=== PATIENT | female | born 1930 | race Caucasian/White ===

== ENCOUNTER 2016-08-04 12:32 | Emergency (ER) | payer MEDICARE, OTHER ==
[2016-08-04 13:07] LABS: Urine WBC >50 /hpf (0-5)
[2016-08-04 13:08] LABS: Urine Bacteria 3+; Urine RBC >50 /hpf (0-5)
--- NOTE | 2016-08-04 13:45 | ERNOTE ---
ER Female HPI Date of Service: 08/04/16 Stated Complaint: BLADDER INFECTION Time Seen by Provider: 08/04/16 13:15 Source: patient Exam Limitations: no limitations Immunizations: IMMUNIZATION HX History of Influenza Vaccine Yes Hx Pneumococcal Vaccination Yes Allergies/Adverse Reactions: Allergies No Known Allergies Allergy (Verified 08/04/16 12:46) Home Medications: HOME MEDICATIONS Atorvastatin Calcium [Lipitor] 5 mg PO DAILY 08/07/14 [Last Taken Unknown] Ciprofloxacin HCl [Cipro] 500 mg PO BID #20 tab 08/04/16 [Last Taken Unknown] - History of Present Illness Narrative: Patient has Hx of UTI. She has developed typical UTI Sx for her yesterday. She is visiting from out of town. No fever. no flank pain. no vomiting. Has not had recent ABx. Frequency and dysuria. No abdominal pain. Timing: Present: constant Quality: Present: moderate Onset Location: Present: other - dysuria Radiation: Present: none Prior Abdominal Problems: Present: other - recurrent UTI Modifying Factors - (Worsens): Present: urinating Prior Treatment: Absent: recently seen Review of Systems - Review of Systems Constitutional: Absent: fever Respiratory: Absent: shortness of breath Gastrointestinal/Abdominal: Absent: abdominal pain Genitourinary: Present: dysuria Neurological: Absent: weakness - Patient's Past Medical History Patient History - Medical: No pertinent hx Patient History - Cardiac/Respiratory: Hyperlipidemia Patient History - Cancer: Breast Patient History - Surgical Procedures: No surgical history Patient History - Other: None - Social History Living Situations: home Psych History: No pertinent hx - Immunizations Hx Pneumococcal Vaccination: Yes History of Influenza Vaccine: Yes Physical Exam - Physical Exam General Appearance: Present: alert, no apparent distress Ears, Nose, Throat: Present: normal ENT inspection Respiratory: Present: no respiratory distress Cardiovascular/Chest: Present: regular rate, rhythm Back Exam: Absent: CVA tenderness (R), CVA tenderness (L) Extremity Exam: Present: normal inspection Neurological Exam: Present: alert, normal mood/affect, no motor/sensory deficits. Absent: motor weakness Skin Exam: Absent: skin rash ED Progress - Results and Orders Patient's Lab Results:: I have reviewed the patient's lab results. - Vital Signs Patient's Vital Signs:: I have reviewed the patient's vital signs. Vital Signs: Vital Signs 08/04/16 08/04/16 08/04/16 12:41 13:16 13:37 Temperature 36.0 C L Pulse Rate 71 66 69 Respiratory 12 Rate Blood Pressure 135/75 131/70 129/68 O2 Sat by Pulse 94 95 96 Oximetry - Progress/Reassessment Chief Complaint: Genitourinary Problem Progress Note-Subjective: 08/04/16 13:42 UTI noted. No evidence of kidney stone or pyelonephritis. No sepsis or toxicity. She feels like going home. Sounds like she gets put on Cipro for these in the past. Will start cipro. I discussed warning signs and reasons to return as well as the need for clsoe f/u. 08/04/16 13:43 Departure Clinical Impression: UTI (urinary tract infection) - Departure Disposition: Home self-care Condition: Stable Instructions: Urinary Tract Infection, Adult, [id number] Additional Instructions: Rest. Fluids. Antibiotics as directed. Follow-up for a re-check in 3-5 days. Return for flank pain, vomiting, fever or if your condition worsens or changes in any way. Prescriptions: Ciprofloxacin HCl [Cipro] 500 mg PO BID #20 tab
[2016-08-04 14:35] VITALS: BP 127/68
== END 2016-08-04 13:45 | disposition home or self-care (01) ==
LOC: ER 12:32
DX: N39.0 Urinary tract infection, site not specified (principal); Z85.3 Personal history of malignant neoplasm of breast; E78.5 Hyperlipidemia, unspecified